=== PATIENT | male | born 1990 | race Caucasian/White ===

== ENCOUNTER 2017-02-03 19:26 | Emergency (ER) | END 2017-02-03 20:20 | disposition left against medical advice (07) | LOC: ER 19:26 | DX: Z53.21 Procedure and treatment not carried out due to patient leaving prior to being seen by health care provider (principal) ==

== ENCOUNTER 2017-02-18 18:04 | Emergency (ER) | payer MEDICAID ==
[2017-02-18] MEDS ORDERED: KETOROLAC TROMETHAMINE INJ/PF 30 MG/1 ML SDV IV ONE (18:58)
--- NOTE | 2017-02-18 18:59 | ER Document Report ---
ED General - General Chief Complaint: Seizure Stated Complaint: POSSIBLE SEIZURES Time Seen by Provider: 02/18/17 18:13 Notes: Patient is a 26-year-old male with past medical history of epilepsy who presents after having a tonic-clonic seizure just prior to arrival. Patient takes Vimpat 300 mg twice daily and states that he has not missed any doses. Admits to not sleeping well last night and has had sleep deprivation as a trigger for seizures in the past. He has not spoken to his neurologist regarding today's episode. His mother who witnessed the seizure state that he had a 5 minute episode of generalized tonic-clonic activity followed by a 15-20 minute episode of a postictal state. At time of arrival patient complains of diffuse aching pain to virtually every area of his body. Nothing improves or worsens that pain. States he often feels like this after seizures. Denies any head or neck trauma or pain. No focal weakness or numbness. Denies any infectious symptoms. - Related Data Allergies/Adverse Reactions: acetaminophen [From Percocet] Allergy (Verified 02/18/17 18:45) oxycodone [From Percocet] Allergy (Verified 02/18/17 18:45) Past Medical History - General Information source: Patient, Relative - Social History Smoking Status: Never Smoker Chew tobacco use (# tins/day): No Frequency of alcohol use: None Drug Abuse: None Lives with: Parents Family History: Reviewed & Not Pertinent Neurological Medical History: Reports: Hx Seizures Past Surgical History: Reports: Hx Orthopedic Surgery - Shoulder, knee Review of Systems - Review of Systems Notes: Constitutional: Negative for fever. HENT: Negative for sore throat. Eyes: Negative for visual changes. Cardiovascular: Negative for chest pain. Respiratory: Negative for shortness of breath. Gastrointestinal: Negative for abdominal pain, vomiting or diarrhea. Genitourinary: Negative for dysuria. Musculoskeletal: Positive for diffuse muscle skeletal pain Skin: Negative for rash. Neurological: Negative for headaches, weakness or numbness. 10 point ROS negative except as marked above and in HPI. Physical Exam - Vital signs Vitals: Temp Pulse Resp BP Pulse Ox 97.8 F 92 16 118/70 96 02/18/17 18:20 02/18/17 18:20 02/18/17 18:20 02/18/17 18:20 02/18/17 18:20 Interpretation: Normal Notes: PHYSICAL EXAMINATION: GENERAL: Well-appearing, well-nourished and in no acute distress. HEAD: Atraumatic, normocephalic. EYES: Pupils equal round and reactive to light, extraocular movements intact, sclera anicteric, conjunctiva are normal. ENT: nares patent, oropharynx clear without exudates. Moist mucous membranes. NECK: Normal range of motion, supple without lymphadenopathy LUNGS: Breath sounds clear to auscultation bilaterally and equal. No wheezes rales or rhonchi. HEART: Regular rate and rhythm without murmurs ABDOMEN: Soft, nontender, normoactive bowel sounds. No guarding, no rebound. No masses appreciated. EXTREMITIES: Normal range of motion, no pitting or edema. No cyanosis. NEUROLOGICAL: Face symmetric. Tongue protrudes midline. Extraocular motions intact. Pupils are 2 mm and equally reactive. Normal speech, normal gait. 5 out of 5 strength in both the distal and proximal upper and lower extremities bilaterally. Sensation is grossly intact throughout. Finger to nose testing normal. Pronator drift normal. PSYCH: Normal mood, normal affect. SKIN: Warm, Dry, normal turgor, no rashes or lesions noted. Course - Re-evaluation Re-evalutation: 02/18/17 18:59 Presentation of well-appearing patient after having a seizure. Patient has a known history of seizures. No obvious trigger for today's episode. The patient has returned to baseline without intervention. No focal neurologic deficits. No infectious symptoms, vital sign abnormalities, or evidence of trauma. No indication for laboratories or imaging based on reassuring evaluation and known history of seizures. The patient will be discharged home with recommendations for close follow-up with primary care as well as their neurologist. Return precautions have been reviewed and patient has verbalized understanding. - Vital Signs Vital signs: Temp Pulse Resp BP Pulse Ox 97.5 F 77 16 114/64 96 02/18/17 19:35 02/18/17 19:35 02/18/17 19:35 02/18/17 19:35 02/18/17 19:35 Discharge - Discharge Clinical Impression: Seizure Condition: Good Disposition: HOME, SELF-CARE Additional Instructions: Today you had a seizure. It is very important that you do not engage in any activities that could result in severe injury should you have a seizure. Specifically, do not drive a vehicle, go into a body of water, take a bath, climb ladders, or operate any heavy machinery until you have been cleared by your neurologist. Please return to the ED immediately if you have multiple seizures close together, develop a severe headache, weakness, numbness, difficulty speaking, have a seizure in which you do not return to normal within 1 hour of the seizure, or have any other symptoms that are concerning to you.
[2017-02-18 19:44] VITALS: BP 114/64
== END 2017-02-18 19:43 | disposition home or self-care (01) ==
LOC: ER 18:04
DX: G40.909 Epilepsy, unspecified, not intractable, without status epilepticus (principal); M79.1 Myalgia; Z88.6 Allergy status to analgesic agent; Z88.5 Allergy status to narcotic agent
CPT/HCPCS: 99284; 96374; J1885

== ENCOUNTER 2017-12-19 23:20 | Emergency (ER) | payer MEDICAID ==
[2017-12-19] MEDS ORDERED: DIPHENHYDRAMINE HCL 50 MG/ML VIAL IV ONE (23:30)
[2017-12-19] MEDS ORDERED: METOCLOPRAMIDE HCL INJ/PF 10 MG/2 ML SDV IV ONE (23:30)
[2017-12-19] MEDS ORDERED: KETOROLAC TROMETHAMINE INJ/PF 30 MG/1 ML SDV IV ONE (23:30)
--- NOTE | 2017-12-19 23:31 | ER Document Report ---
ED Seizure - General Chief Complaint: Seizure Stated Complaint: SEIZURES Time Seen by Provider: 12/19/17 23:23 Notes: Patient is a 27-year-old male with a history of epilepsy that comes emergency department by EMS for 2 seizures today. Patient states he frequently has one seizure a day, does not usually have 2 seizures daily. Seizures lasted each a couple of minutes with a postictal state that lasted about 10-15 minutes after both. Seizures were tonic-clonic, he bit his tongue. Patient states he has been compliant with his medication, Vimpat 300 mg morning and evening. He denies fever, vomiting, or symptoms out of the ordinary. - Related Data Allergies/Adverse Reactions: acetaminophen [From Percocet] Allergy (Verified 02/18/17 18:45) oxycodone [From Percocet] Allergy (Verified 02/18/17 18:45) Past Medical History - General Information source: Patient, Parent - Social History Smoking Status: Never Smoker Frequency of alcohol use: None Drug Abuse: None Lives with: Family Family History: Reviewed & Not Pertinent Neurological Medical History: Reports: Hx Seizures Past Surgical History: Reports: Hx Orthopedic Surgery - Shoulder, knee Review of Systems - Review of Systems Constitutional: No symptoms reported EENT: No symptoms reported Cardiovascular: No symptoms reported Respiratory: No symptoms reported Gastrointestinal: No symptoms reported Genitourinary: No symptoms reported Male Genitourinary: No symptoms reported Musculoskeletal: No symptoms reported Skin: No symptoms reported Hematologic/Lymphatic: No symptoms reported Neurological/Psychological: See HPI Physical Exam - Vital signs Vitals: Resp Pulse Ox 18 94 12/19/17 23:25 12/19/17 23:25 Interpretation: Normal - General General appearance: Appears well In distress: None - HEENT Head: Normocephalic, Atraumatic Eyes: Normal Conjunctiva: Normal Extraocular movements intact: Yes Eyelashes: Normal Pupils: PERRL Ears: Normal Sinus: Normal Nasal: Normal Mouth/Lips: Laceration - Minimal cut and dried blood on the right tip of the tongue, otherwise unremarkable Mucous membranes: Dry Pharynx: Normal Neck: Normal - Respiratory Respiratory status: No respiratory distress Chest status: Nontender Breath sounds: Normal Chest palpation: Normal - Cardiovascular Rhythm: Regular Heart sounds: Normal auscultation Murmur: No - Abdominal Inspection: Normal Distension: No distension Bowel sounds: Normal Tenderness: Nontender Organomegaly: No organomegaly - Back Back: Normal, Nontender - Extremities General upper extremity: Normal inspection, Nontender, Normal color, Normal ROM , Normal temperature General lower extremity: Normal inspection, Nontender, Normal color, Normal ROM , Normal temperature, Normal weight bearing. No: Lary's sign - Neurological Neuro grossly intact: Yes Cognition: Normal Orientation: AAOx4 [place] Coma Scale Eye Opening: Spontaneous Janna Coma Scale Verbal: Oriented Janna Coma Scale Motor: Obeys Commands [place] Coma Scale Total: 15 Speech: Normal Motor strength normal: LUE, RUE, LLE, RLE Sensory: Normal - Psychological Associated symptoms: Normal affect, Normal mood - Skin Skin Temperature: Warm Skin Moisture: Dry Skin Color: Normal Course - Re-evaluation Re-evalutation: Patient cooperative, alert, complains of a mild headache but has no other complaints. No signs of injury other than biting his tongue. Vital signs unremarkable. Giving medications for migraine because he has returned to normal baseline. CBC unremarkable, chemistry shows low bicarbonate at 14, patient was given IV fluids. Patient is dry with dry mucous membranes on exam, no evidence of respiratory abnormality with no hypoxia, clear lung sounds, and no shortness of breath complaints. Parents came to bedside, I discussed with them, they state that patient has daily partial seizures but does not usually have tonic-clonic seizures, states his last one was months ago and today he had to. As result I contacted neurologist non profit director, patient sees Dr. Olson. Dr. Son Lucas on-call for patient's provider, has seen the patient in the past , recommends at this time to start patient on low-dose Klonopin twice a day for the next week with close follow-up with his neurologist and return precautions. I discussed this with family in detail, they state understanding and agreement with plan. - Vital Signs Vital signs: Temp Pulse Resp BP Pulse Ox 98.4 F 19 130/94 H 98 12/20/17 03:00 12/20/17 03:01 12/20/17 03:00 12/20/17 03:01 - Laboratory Result Diagrams: 12/19/17 23:04 12/19/17 23:04 Laboratory results interpreted by me: 12/19/17 12/19/17 12/20/17 23:04 23:04 00:18 WBC 12.9 H Carbon Dioxide 14 L Anion Gap 27 H Alkaline Phosphatase 150 H Urine Urobilinogen 2.0 H Discharge - Discharge Clinical Impression: Seizure disorder, Grand mal seizure Condition: Stable Disposition: HOME, SELF-CARE Additional Instructions: I spoke with Dr. Son husain, recommendation is in addition to your Vimpat that you take the low-dose Klonopin twice a day for the next 7 days. This should help lower the chances of you having a grand mal seizure. Get plenty of sleep, stay hydrated, please follow-up with Dr. Olson in the next 1- 2 days for additional management. Return for any concerning symptoms including fever, vomiting, additional seizures, passing out, or any other concerning or worsening symptoms. Prescriptions: Clonazepam [Klonopin 0.5 mg Tablet Rapid Dissolve] 0.5 mg PO Q12 #14 tab.rapdis Referrals: LORENZA ARITA DO [Primary Care Provider] - Follow up as needed
[2017-12-19 23:42] LABS: ABSOLUTE BASOPHILS # (AUTO) 0.1 10^3/uL (0.0-0.2); ABSOLUTE EOSINOPHILS # (AUTO) 0.4 10^3/uL (0.0-0.6); ABSOLUTE MONOCYTES (AUTO) 1.4 10^3/uL (0.1-1.4); ABSOLUTE NEUT (AUTO) 7.2 10^3/uL (1.7-8.2); BASOPHILS % (AUTO) 0.4 % (0-2); EOSINOPHILS % (AUTO) 2.7 % (0-6); HEMATOCRIT 47.8 % (37.9-51.0); HEMOGLOBIN 15.9 g/dL (13.5-17.0); LYMPHOCYTES % (AUTO) 30.6 % (13-45); MEAN CORPUSCULAR HEMOGLOBIN 31.9 pg (27.0-33.4); MEAN CORPUSCULAR HGB CONC 33.3 g/dL (32.0-36.0); MEAN CORPUSCULAR VOLUME 96 fl (80-97); MONOCYTES % (AUTO) 10.6 % (3-13); PLATELET COUNT 249 10^3/uL (150-450); RED CELL DISTRIBUTION WIDTH 12.6 % (11.5-14.0); SEGMENTED NEUTROPHILS % (AUTO) 55.7 % (42-78); TOTAL CELLS COUNTED % (AUTO) 100 %; WHITE BLOOD COUNT 12.9 10^3/uL (4.0-10.5)
[2017-12-20 00:02] LABS: ALANINE AMINOTRANSFERASE 60 U/L (21-72); ALBUMIN 4.9 g/dL (3.5-5.0); ALKALINE PHOSPHATASE 150 U/L (38-126); ASPARTATE AMINO TRANSFERASE 38 U/L (17-59); BILIRUBIN,DIRECT 0.4 mg/dL (0.0-0.4); BILIRUBIN,TOTAL 0.4 mg/dL (0.2-1.3); BLOOD UREA NITROGEN 11 mg/dL (7-20); CALCIUM 9.7 mg/dL (8.4-10.2); GLUCOSE 102 mg/dL (75-110); POTASSIUM 4.4 mmol/L (3.6-5.0); TOTAL PROTEIN 7.6 g/dL (6.3-8.2)
[2017-12-20 00:07] LABS: ALCOHOL < 10 mg/dL (NONE DETECTED); CARBON DIOXIDE 14 mmol/L (22-30); CHLORIDE 103 mmol/L (98-107); SODIUM 144.4 mmol/L (137-145)
[2017-12-20 00:08] LABS: ANION GAP 27 (5-19)
[2017-12-20] MEDS ORDERED: NORMAL SALINE 1000 ML 1,000 ML IV ONE (00:20)
[2017-12-20 00:48] LABS: APPEARANCE,URINE CLEAR; BILIRUBIN,URINE NEGATIVE (NEGATIVE); COLOR,URINE YELLOW; GLUCOSE, URINE NEGATIVE (NEGATIVE); KETONES,URINE NEGATIVE (NEGATIVE); LEUKOCYTE ESTERASE,URINE NEGATIVE (NEGATIVE); NITRITE,URINE NEGATIVE (NEGATIVE); PROTEIN,URINE NEGATIVE (NEGATIVE); URINE SPECIFIC GRAVITY 1.019
[2017-12-20] MEDS ORDERED: CLONAZEPAM 1 MG TABLET PO ONE (01:44)
[2017-12-20 03:29] VITALS: BP 130/94
== END 2017-12-20 03:25 | disposition home or self-care (01) ==
LOC: ER 23:20
DX: G40.409 Other generalized epilepsy and epileptic syndromes, not intractable, without status epilepticus (principal); R51 Headache; Z79.899 Other long term (current) drug therapy
CPT/HCPCS: 99284; 96374; 96375; 36415; 80307; 83735; 85025; 80053; 81001; J3490; J1200; J1885; J2765; J7030

== ENCOUNTER → 2018-01-01 | Day surgery (SDC) | payer MEDICAID ==
--- NOTE | 2018-01-01 10:26 | RADIOLOGY REPORT (SQ) ---
EXAM DESCRIPTION: FLUORO/NEEDLE PLACEMENT; ARTHRO SHOULDER INJECTION COMPLETED DATE/TIME: 01/01/2018 10:12 am REASON FOR STUDY: INJURY OF LEFT SUPERIOR GLENOID LABRUM OF SHOULDER (S49.92XD) S49.92XD UNSP INJUR Y OF LEFT SHOULDER AND UPPER ARM, SUBS EN COMPARISON: None. FLUOROSCOPY TIME: 40 seconds 2 digital radiographic images saved to PACS. LIMITATIONS: None. PROCEDURE: Procedure, risks, benefits and alternative explained to patient who then gave written con sent. The posterior left shoulder was marked and a time-out was called for correct marking verificat ion. Posterior entry site marked using fluoroscopic guidance. Shoulder prepped and draped using sav rile technique. Local anesthesia achieved using 7 mL of 1% lidocaine injection. 22 gauge spinal need le introduced into the joint space under direct fluoroscopic visualization. Non-ionic contrast insti lled to confirm intra-articular position. Additional dilute non-ionic contrast instilled. Needle re moved and entry site covered with sterile bandage. No immediate complications noted. TECHNIQUE: Digital images acquired during fluoroscopy and stored on PACS. Patient immediately take n to the CT suite for additional imaging. INJECTION LOCATION: Posterior left glenohumeral joint CONTRAST TYPE AND AMOUNT: 2 mL of Isovue 300 was injected to confirm intra-articular needle placement followed by 12 mL of dilute Isovue/saline mixture for CT arthrogram left shoulder IMPRESSION: SUCCESSFUL NEEDLE PLACEMENT AND INJECTION FOR LEFT SHOULDER CT ARTHROGRAM USING POSTERIO R APPROACH. COMMENT: Quality ID 145: Final reports for procedures using fluoroscopy that document radiation exp osure indices, or exposure time and number of fluorographic images (if radiation exposure indices are not available) TECHNICAL DOCUMENTATION: JOB ID: [id number] [email or web address]- All Rights Reserved Reading location - IP/workstation name: [email or web address]
--- NOTE | 2018-01-01 10:58 | RADIOLOGY REPORT (SQ) ---
EXAM DESCRIPTION: CT LT UPPER EXTREMITY WITH COMPLETED DATE/TIME: 01/01/2018 10:24 am REASON FOR STUDY: INJURY OF LEFT SUPERIOR GLENOID LABRUM OF SHOULDER (S49.92XD) S49.92XD UNSP INJUR Y OF LEFT SHOULDER AND UPPER ARM, SUBS EN COMPARISON: None. TECHNIQUE: Axial imaging performed through the leftshoulder with reformatted oblique coronal and obl ique sagittal imaging windowed for bone and soft tissues. All CT scanners at this facility use dose modulation, iterative reconstruction, and/or weight based d osing when appropriate to reduce radiation dose to as low as reasonably achievable (ALARA). [facility]: Dose Right [facility]: CareDose [facility]: Dose Right [facility]: Teradose 4D [facility]: [employer] RADIATION DOSE: CT Rad equipment meets quality standard of care and radiation dose reduction techniq ues were employed. CTDIvol: 15.9 mGy. DLP: 395 mGy-cm. mGy. LIMITATIONS: None. FINDINGS: SOFT TISSUES: No soft tissue masses around the left shoulder. No left axillary adenopathy . Left upper lung, left upper ribs, unremarkable. Patient does have a jugular neurostimulator on th e left side with retained metallic electrode along the left jugular vein axial images 22-27. Neurost imulator Battery pack is no longer identified. BONY ARCHITECTURE: No fracture. No lytic or blastic lesions GLENOHUMERAL JOINT: Normal joint space. Articular cartilage is maintained. ACROMION AND AC JOINT: Type 2 acromion. No bulky AC joint hypertrophy. ROTATOR CUFF: Intact. No leakage of contrast into the subacromial/subdeltoid bursa. GLENOID, LABRUM AND BICEPS: Intra-articular long head biceps tendon is intact. No superior labral te ar at its insertion. No labral tear or paralabral cyst. OTHER: Small joint capsule, difficult to distend with contrast. Small axillary recess. Findings are worrisome for adhesive capsulitis IMPRESSION: Findings of adhesive capsulitis. No CT arthrogram evidence of superior labral tear or r otator cuff tear. TECHNICAL DOCUMENTATION: JOB ID: [id number] Quality ID # [id number]: Final reports with documentation of one or more dose reduction techniques (e.g., Au tomated exposure control, adjustment of the mA and/or kV according to patient size, use of iterative reconstruction technique) 2010 [employer]- All Rights Reserved Reading location - IP/workstation name: [email or web address]
== END ==
LOC: RAD 09:36
PROVIDERS: ATTEND Orthopaedic Surgery
DX: S49.92XD Unspecified injury of left shoulder and upper arm, subsequent encounter (principal); X58.XXXD Exposure to other specified factors, subsequent encounter
CPT/HCPCS: 23350; 77002

== ENCOUNTER 2018-03-12 13:17 | Emergency (ER) | payer MEDICAID ==
[2018-03-12 13:25] VITALS: BP 128/88
--- NOTE | 2018-03-12 13:42 | ER Document Report ---
ED General - General Chief Complaint: Headache Stated Complaint: HEAD PRESSURE Time Seen by Provider: 03/12/18 13:38 Mode of Arrival: Ambulatory Information source: Patient Notes: Chief complaint: Runny nose History of complain:( obtained from----patient) 28 years old male presents today with pressure behind the right ear and runny nose over the right side of the nostril last 2 days. No headache no fever chills or other constitutional symptoms. Has a history of seizure disorder from childbirth Onset: As above Duration: Gradual Severity: Mild to moderate Quality: Dull Context: As above Exacerbating factor and relieving factors: As above REVIEW OF SYSTEMS: CONSTITUTIONAL : Denies fever, chills, or sweats. Denies recent illness. EENT: Denies eye, ear, throat, or mouth pain or symptoms. Denies nasal or sinus congestion or discharge. Denies throat, tongue, or mouth swelling or difficulty swallowing. CARDIOVASCULAR: Denies chest pain. Denies palpitations or racing or irregular heart beat. Denies ankle edema. RESPIRATORY: Denies cough, cold, or chest congestion. Denies shortness of breath, difficulty breathing, or wheezing. GASTROINTESTINAL: Denies distention. Denies nausea, vomiting, or diarrhea. Denies blood in vomitus, stools, or per rectum. Denies black, tarry stools. Denies constipation. GENITOURINARY: Denies difficulty urinating, painful urination, burning, frequency, blood in urine, or discharge. FEMALE GENITOURINARY: Denies vaginal bleeding, heavy or abnormal periods, irregular periods. Denies vaginal discharge or odor. MUSCULOSKELETAL: Denies back or neck pain or stiffness. Denies joint pain or swelling. SKIN: Denies rash, lesions or sores. HEMATOLOGIC : Denies easy bruising or bleeding. LYMPHATIC: Denies swollen, enlarged glands. NEUROLOGICAL: Denies confusion or altered mental status. Denies passing out or loss of consciousness. Denies dizziness or lightheadedness. Denies headache. Denies weakness or paralysis or loss of use of either side. Denies problems with gait or speech. Denies sensory loss, numbness, or tingling. Denies seizures. PSYCHIATRIC: Denies anxiety or stress. Denies depression, suicidal ideation, or homicidal ideation. ALL OTHER SYSTEMS REVIEWED AND NEGATIVE. PHYSICAL EXAMINATION: GENERAL: Well-appearing, well-nourished and in no acute distress. HEAD: Atraumatic, normocephalic. Paranasal tenderness over the right side EYES: Pupils equal round and reactive to light, extraocular movements intact, conjunctiva are normal. ENT: Nares patent, oropharynx clear without exudates. Moist mucous membranes. NECK: Normal range of motion, supple without lymphadenopathy LUNGS: Breath sounds clear to auscultation bilaterally and equal. No wheezes rales or rhonchi. HEART: Regular rate and rhythm without murmurs ABDOMEN: Soft, nontender, nondistended abdomen. No guarding, no rebound. No masses appreciated. Examination of genitals-deferred Musculoskeletal: Normal range of motion, no pitting or edema. No cyanosis. NEUROLOGICAL: Cranial nerves grossly intact. Normal speech, normal gait. Normal sensory, motor exams PSYCH: Normal mood, normal affect. SKIN: Warm, Dry, normal turgor, no rashes or lesions noted. Dictation was performed using [employer] voice recognition software TRAVEL OUTSIDE OF THE [place] IN LAST 30 DAYS: No - HPI Context: Dictated - Related Data Allergies/Adverse Reactions: acetaminophen [From Percocet] Allergy (Verified 03/12/18 13:17) oxycodone [From Percocet] Allergy (Verified 03/12/18 13:17) Past Medical History - Social History Smoking Status: Never Smoker Cigarette use (# per day): No Chew tobacco use (# tins/day): No Smoking Education Provided: No Frequency of alcohol use: None Lives with: Family Family History: Reviewed & Not Pertinent Patient has suicidal ideation: No Patient has homicidal ideation: No Neurological Medical History: Reports: Hx Seizures Renal/ Medical History: Denies: Hx Peritoneal Dialysis Past Surgical History: Reports: Hx Orthopedic Surgery - Shoulder, knee Review of Systems - Review of Systems Notes: Dictated Physical Exam - Vital signs Vitals: Temp Pulse Resp BP Pulse Ox 98.0 F 84 16 128/88 H 97 03/12/18 13:03/12/18 13:03/12/18 13:03/12/18 13:03/12/18 13:24 - Notes Notes: Dictated Course - Vital Signs Vital signs: Temp Pulse Resp BP Pulse Ox 98.0 F 84 16 128/88 H 97 03/12/18 13:24 03/12/18 13:24 03/12/18 13:24 03/12/18 13:24 03/12/18 13:24 Discharge - Discharge Clinical Impression: Sinusitis Qualifiers: Sinusitis location: frontal Chronicity: acute Recurrence: non-recurrent Qualified Code(s): J01.10 - Acute frontal sinusitis, unspecified Rhinitis Qualifiers: Rhinitis type: acute Qualified Code(s): J00 - Acute nasopharyngitis [common cold] Condition: Fair Disposition: HOME, SELF-CARE Instructions: Sinusitis ([facility]) Prescriptions: Amoxicillin 500 mg PO TID #30 capsule Referrals: LORENZA ARITA DO [Primary Care Provider] - Follow up as needed
== END 2018-03-12 13:41 | disposition home or self-care (01) ==
LOC: ER 13:17
DX: J01.10 Acute frontal sinusitis, unspecified (principal); J00 Acute nasopharyngitis [common cold]; Z88.6 Allergy status to analgesic agent; Z88.5 Allergy status to narcotic agent
CPT/HCPCS: 99283

== ENCOUNTER 2018-09-28 12:34 | Emergency (ER) | payer MEDICAID ==
[2018-09-28 13:20] LABS: ABSOLUTE BASOPHILS # (AUTO) 0.1 10^3/uL (0.0-0.2); ABSOLUTE EOSINOPHILS # (AUTO) 0.5 10^3/uL (0.0-0.6); ABSOLUTE LYMPHOCYTES (AUTO) 2.3 10^3/uL (0.5-4.7); ABSOLUTE MONOCYTES (AUTO) 0.7 10^3/uL (0.1-1.4); ABSOLUTE NEUT (AUTO) 4.9 10^3/uL (1.7-8.2); BASOPHILS % (AUTO) 0.7 % (0-2); EOSINOPHILS % (AUTO) 5.6 % (0-6); HEMATOCRIT 46.4 % (37.9-51.0); HEMOGLOBIN 15.9 g/dL (13.5-17.0); LYMPHOCYTES % (AUTO) 27.7 % (13-45); MEAN CORPUSCULAR HEMOGLOBIN 32.5 pg (27.0-33.4); MEAN CORPUSCULAR HGB CONC 34.3 g/dL (32.0-36.0); MEAN CORPUSCULAR VOLUME 95 fl (80-97); MONOCYTES % (AUTO) 8.1 % (3-13); PLATELET COUNT 241 10^3/uL (150-450); RED BLOOD COUNT 4.88 10^6/uL (4.35-5.55); RED CELL DISTRIBUTION WIDTH 12.4 % (11.5-14.0); SEGMENTED NEUTROPHILS % (AUTO) 57.9 % (42-78); TOTAL CELLS COUNTED % (AUTO) 100 %; WHITE BLOOD COUNT 8.4 10^3/uL (4.0-10.5)
[2018-09-28 13:42] LABS: ALANINE AMINOTRANSFERASE 49 U/L (21-72); ALKALINE PHOSPHATASE 139 U/L (38-126); ASPARTATE AMINO TRANSFERASE 40 U/L (17-59); BILIRUBIN,DIRECT 0.3 mg/dL (0.0-0.4); BILIRUBIN,TOTAL 0.5 mg/dL (0.2-1.3); BLOOD UREA NITROGEN 12 mg/dL (7-20); CALCIUM 9.4 mg/dL (8.4-10.2); GLUCOSE 137 mg/dL (75-110); POTASSIUM 4.8 mmol/L (3.6-5.0); TOTAL PROTEIN 7.8 g/dL (6.3-8.2)
[2018-09-28 13:47] LABS: ANION GAP 18 (5-19); CARBON DIOXIDE 17 mmol/L (22-30); CHLORIDE 106 mmol/L (98-107); SODIUM 141.2 mmol/L (137-145)
[2018-09-28 13:51] LABS: ALCOHOL < 10 mg/dL (NONE DETECTED)
--- NOTE | 2018-09-28 14:53 | ER Document Report ---
ED General - General Chief Complaint: Probable Seizure Stated Complaint: POSSIBLE SEIZURE/FALL Time Seen by Provider: 09/28/18 14:38 Primary Care Provider: LORENZA ARITA DO [Primary Care Provider] - Follow up as needed Notes: Patient is a 27-year-old male with a history of epilepsy that comes emergency department by EMS for a generalized today. Patient states he frequently has one seizure a day but now is only every couple of months that he has a generalized tonic-clonic seizure. Mom states she was sitting on a tall bed and she was on the other side of it getting his medications ready when he made a loud noise consistent with prodrome and he had a seizure and fell off the bed and fell flat on his face. He bit his tongue. Mom is concerned because he had a pacemaker placed 1 week ago and was told to be careful for the next 6 weeks. She is concerned that lead placement may have been affected. Patient is back at his baseline mental status. Patient states he has been compliant with his medication, Vimpat 300 mg morning and evening. He denies fever, vomiting, or symptoms out of the ordinary. TRAVEL OUTSIDE OF THE [place] IN LAST 30 DAYS: No - Related Data Allergies/Adverse Reactions: acetaminophen [From Percocet] Allergy (Verified 03/12/18 13:17) oxycodone [From Percocet] Allergy (Verified 03/12/18 13:17) Past Medical History - Social History Smoking Status: Never Smoker Chew tobacco use (# tins/day): No Frequency of alcohol use: None Drug Abuse: None Family History: Reviewed & Not Pertinent Patient has suicidal ideation: No Patient has homicidal ideation: No Neurological Medical History: Reports: Hx Seizures Renal/ Medical History: Denies: Hx Peritoneal Dialysis Past Surgical History: Reports: Hx Cardiac Surgery - pacemaker, Hx Orthopedic Surgery - Shoulder, knee Review of Systems - Review of Systems Constitutional: See HPI EENT: See HPI Cardiovascular: No symptoms reported Respiratory: See HPI Gastrointestinal: See HPI Genitourinary: No symptoms reported Male Genitourinary: No symptoms reported Musculoskeletal: No symptoms reported Skin: No symptoms reported Hematologic/Lymphatic: No symptoms reported Neurological/Psychological: No symptoms reported Physical Exam - Notes Notes: PHYSICAL EXAMINATION: Reviewed vital signs and charting by RN GENERAL: Alert, interacts well. No acute distress. HEAD: Normocephalic, small abrasion bridge of nose. EYES: Pupils equal, round, and reactive to light. Extraocular movements intact. ENT: Oral mucosa moist, tongue midline, small laceration right lateral tongue from biting it no evidence of bleeding. NECK: Full range of motion. Supple. Trachea midline. LUNGS: Clear to auscultation bilaterally, no wheezes, rales, or rhonchi. No respiratory distress. HEART: Regular rate and rhythm. No murmur ABDOMEN: soft, non-tender. Non-distended. Bowel sounds present in all 4 quadrants. EXTREMITIES: Moves all 4 extremities spontaneously. No edema, No cyanosis. BACK: no cervical, thoracic, lumbar midline tenderness. No saddle anesthesia, normal distal neurovascular exam. NEUROLOGICAL: Alert and oriented x3. Normal speech. No focal neuro deficits PSYCH: Normal affect, normal mood. SKIN: Warm, dry, normal turgor. No rashes or lesions noted. Course - Re-evaluation Re-evalutation: 09/28/18 14:53 Patient presents after typical seizure. Mom is concerned because patient had pacemaker placed 1 week ago for lead placement. Chest x-ray to assess. 09/28/18 15:24 Chest x-ray done. Cardiac leads appear to be in place and per report leads overlying right atrium and right ventricle. Patient is at baseline mental statu s. He is complaining of some nausea. Plan is to give him some Zofran and some Tylenol. Patient does have good follow-up with neurology and saw his neurologist a couple of weeks ago. Mom has no other concerns. Patient is safe and stable to discharge home. 09/28/18 15:24 - Laboratory Result Diagrams: 09/28/18 12:45 09/28/18 12:45 Laboratory results interpreted by me: 09/28/18 09/28/18 12:45 12:55 Carbon Dioxide 17 L Glucose 137 H POC Glucose 148 H Alkaline Phosphatase 139 H Discharge - Discharge Clinical Impression: Seizure Condition: Good Disposition: HOME, SELF-CARE Additional Instructions: You are seen in the emergency department this afternoon for seizure. Your chest x-ray was normal and showed proper lead placement. Please continue to take your medications as prescribed and follow-up with your neurologist as needed. Return for any concerning symptoms including fever, vomiting, additional seizures, passing out, or any other concerning or worsening symptoms. Referrals: LORENZA ARITA DO [Primary Care Provider] - Follow up as needed
--- NOTE | 2018-09-28 15:13 | RADIOLOGY REPORT (SQ) ---
EXAM DESCRIPTION: CHEST SINGLE VIEW COMPLETED DATE/TIME: 09/28/2018 3:04 pm REASON FOR STUDY: assess PCM placement COMPARISON: None available EXAM PARAMETERS: NUMBER OF VIEWS: One view. TECHNIQUE: Single frontal radiographic view of the chest acquired. RADIATION DOSE: NA LIMITATIONS: None. FINDINGS: LUNGS AND PLEURA: No opacities, masses or pneumothorax. No pleural effusion. MEDIASTINUM AND HILAR STRUCTURES: No masses. Contour normal. HEART AND VASCULAR STRUCTURES: Heart normal in size. Normal vasculature. BONES: No acute findings. HARDWARE: Left-sided cardiac pacer with leads overlying right atrium and right ventricle. Stimulator leads overlie left neck. OTHER: No other significant finding. IMPRESSION: No evidence of acute cardiopulmonary process. TECHNICAL DOCUMENTATION: JOB ID: [id number] [employer]- All Rights Reserved Reading location - IP/workstation name: [email or web address]
[2018-09-28] MEDS ORDERED: ONDANSETRON 4 MG TAB.RAPDIS PO ONE (15:21)
[2018-09-28] MEDS ORDERED: ACETAMINOPHEN 325 MG TABLET PO ONE (15:21)
[2018-09-28 15:50] VITALS: BP 122/77
--- NOTE | 2018-09-28 21:20 | EKG REPORT ---
SEVERITY:- OTHERWISE NORMAL ECG - SINUS RHYTHM BORDERLINE RIGHT AXIS DEVIATION : Confirmed by: Kayy Castro MD 28-Sep-2018 21:19:40
== END 2018-09-28 15:51 | disposition home or self-care (01) ==
LOC: ER 12:34
DX: G40.909 Epilepsy, unspecified, not intractable, without status epilepticus (principal); Z79.899 Other long term (current) drug therapy; S01.552A Open bite of oral cavity, initial encounter; W50.3XXA Accidental bite by another person, initial encounter; Y93.89 Activity, other specified; R11.0 Nausea; Z95.0 Presence of cardiac pacemaker; Z88.6 Allergy status to analgesic agent; Z88.5 Allergy status to narcotic agent
CPT/HCPCS: 93005; 99284; 36415; 82962; 80307; 83735; 85025; 80053; 71045; 93010; J3490; S0119

== ENCOUNTER 2018-11-14 21:41 | Emergency (ER) | payer MEDICAID ==
--- NOTE | 2018-11-14 22:37 | RADIOLOGY REPORT (SQ) ---
EXAM DESCRIPTION: XR HAND 1-2 VIEWS COMPLETED DATE/TME: 11/14/2018 00:00 CLINICAL HISTORY: 28 years, Male, fell on hand COMPARISON: None. NUMBER OF VIEWS: 2 TECHNIQUE: 2 view left hand LIMITATIONS: None. FINDINGS: Negative for fracture or dislocation. Soft tissues are unremarkable IMPRESSION: Negative exam copyright 2010 [employer]- All Rights Reserved
--- NOTE | 2018-11-15 01:58 | ER Document Report ---
ED General - General Chief Complaint: Hand Injury Stated Complaint: HAND INJURY Time Seen by Provider: 11/15/18 01:37 Primary Care Provider: LORENZA ARITA DO [Primary Care Provider] - Follow up as needed Mode of Arrival: Ambulatory Information source: Patient TRAVEL OUTSIDE OF THE [place] IN LAST 30 DAYS: No - HPI Patient complains to provider of: Injury to left hand Onset: This afternoon Onset/Duration: Sudden Severity: Mild Pain Level: 2 Associated symptoms: None Exacerbated by: Denies Relieved by: Denies Notes: 28-year-old male coming in today with left hand injury. States he injured his left hand while he was taking out the heavy metal trash can. It struck him to the left hand over the thenar eminence. No other injuries - Related Data Allergies/Adverse Reactions: acetaminophen [From Percocet] Allergy (Verified 03/12/18 13:17) oxycodone [From Percocet] Allergy (Verified 03/12/18 13:17) Past Medical History - General Information source: Patient - Social History Smoking Status: Unknown if Ever Smoked Family History: Reviewed & Not Pertinent Patient has suicidal ideation: No Patient has homicidal ideation: No Neurological Medical History: Reports: Hx Seizures Renal/ Medical History: Denies: Hx Peritoneal Dialysis Past Surgical History: Reports: Hx Cardiac Surgery - pacemaker, Hx Orthopedic Surgery - Shoulder, knee Review of Systems - Review of Systems Notes: Constitutional: No fevers. No chills. EENT: No eye redness. No eye pain. No ear pain. No sore throat. Cardiovascular: No chest pain. No palpitations. Respiratory: No cough. No shortness of breath. No respiratory distress. Gastrointestinal: No abdominal pain. No nausea, vomiting, or diarrhea. Genitourinary: Atraumatic. No lesions. No pain. No discharge. Musculoskeletal: Left hand pain, left hand swelling Skin: No rash or lesions. Lymphatic: No swollen lymph nodes. Neurologic: No headache. No syncope. Psychiatric: No suicidal or homicidal ideation. Physical Exam - Vital signs Vitals: Temp Pulse Resp BP Pulse Ox 97.3 F 85 16 138/87 H 95 11/14/18 21:57 11/14/18 21:57 11/14/18 21:57 11/14/18 21:57 11/14/18 21:57 - Notes Notes: General: Well-developed, well-nourished. In no acute distress. Non-toxic appearing. Cardiac: Well-perfused. Regular rate and rhythm. No murmurs, rubs, or gallops. Pulmonary: No respiratory distress. No cyanosis. Bilateral lung fiels are clear to auscultation. Abdominal: Non-distended. Non-rigid. Bowels sounds are present in all four quadrants. No guarding or rebound. HEENT: Head is atraumatic. Conjunctivae not reddened. No tearing. PERRL. EOMI. Orbits atraumatic. No periorbital swelling or erythema. Oropharynx is without erythema, swelling, or exudates. Neck: Supple. No adenopathy. No meningismus. Dermatologic: Warm with good turgor. No rash. Atraumatic. Chest: Atraumatic. No chest wall tenderness to palpation. Musculoskeletal: There is soft tissue swelling and tenderness over the left thenar eminence. No bony deformities. Able to move all fingers. Distal neuro vascular exam is intact. Genitourinary: Examination deferred Neurologic: No gross neurologic deficits. Psychiatric: Normal mood. Course - Vital Signs Vital signs: Temp Pulse Resp BP Pulse Ox 97.3 F 85 16 138/87 H 95 11/14/18 21:57 11/14/18 21:57 11/14/18 21:57 11/14/18 21:57 11/14/18 21:57 - Diagnostic Test Radiology reviewed: Reports reviewed - X-ray of left hand negative Discharge - Discharge Clinical Impression: Hand contusion Qualifiers: Encounter type: initial encounter Laterality: left Qualified Code(s): S60.222A - Contusion of left hand, initial encounter Condition: Good Instructions: Contusion ([facility]) Additional Instructions: Apply ice for 20 minutes/h. Continue to take naproxen for anti-inflammatory effects. Ultracet as needed for moderate to severe pain. Prescriptions: Tramadol HCl/Acetaminophen [Ultracet 37.5 mg/325 mg Tablet] 1 each PO Q6HP PRN #12 tablet PRN Reason: Referrals: LORENZA ARITA DO [Primary Care Provider] - Follow up in 1 week Print Language: Austrian
[2018-11-15] MEDS ORDERED: HYDROCODONE/ACETAMINOPHEN 5-325 MG TABLET PO ONE (02:03)
[2018-11-15 02:39] VITALS: BP 127/93
== END 2018-11-15 02:15 | disposition home or self-care (01) ==
LOC: ER 21:41
DX: S60.222A Contusion of left hand, initial encounter (principal); M79.642 Pain in left hand; W22.8XXA Striking against or struck by other objects, initial encounter; Y93.89 Activity, other specified; Z88.5 Allergy status to narcotic agent
CPT/HCPCS: 99283